=== PATIENT | female | born 1975 | race Hispanic/Latino ===

== ENCOUNTER 2018-06-12 03:19 | Inpatient (IN) | payer SELFPAY, OTHER | END 2018-06-27 18:55 | disposition home or self-care (01) | LOC: EDH 03:19 → EDHIP 03:20 → 3AH 05:03 | PROC: 0FT44ZZ Resection of Gallbladder, Percutaneous Endoscopic Approach (ICD-10-PCS; principal; 2018-06-12 13:00) | DX: A41.9 Sepsis, unspecified organism (principal); K80.10 Calculus of gallbladder with chronic cholecystitis without obstruction; E87.1 Hypo-osmolality and hyponatremia; R65.20 Severe sepsis without septic shock ==

== ENCOUNTER 2019-09-11 03:16 | Emergency (ER) | payer OTHER, SELFPAY ==
[2019-09-11] MEDS ORDERED: KETOROLAC TROMETHAMINE 60 MG/2 ML VIAL ONE (04:04)
[2019-09-11] MEDS ORDERED: LIDOCAINE 5% TOPICAL PATCH TP ONE (04:04)
== END 2019-09-11 05:08 | disposition home or self-care (01) ==
LOC: EDH 03:16
DX: M62.830 Muscle spasm of back (principal)
CPT/HCPCS: 96372; 99283; J1885